=== PATIENT | male | born 1955 | race Caucasian/White ===

== ENCOUNTER 2021-02-27 13:39 | Observation (INO) ==
[2021-02-27] MEDS ORDERED: Clindamycin 900 MG/50 ML 900 MG/50 ML IV.SOLN IVPB ONE (13:54)
[2021-02-27] MEDS ORDERED: Ringers Solution, Lactated 1,000 ML IVC SCH ×2 (14:00→19:33)
[2021-02-27 15:03] LABS: Influenza A PCR Negative (Negative); Influenza B PCR Negative (Negative); Resp. Syncytial Virus PCR Negative (Negative)
[2021-02-27 15:04] LABS: SARS-CoV-2 by PCR (In House) Negative (Negative)
[2021-02-27] MEDS ORDERED: Bacitracin 50,000 UNIT, Polymyxin B Sulfate 500,000 UNIT, Sodium Chloride IRRigation 1,... IR ONE (15:25)
[2021-02-27] MEDS ORDERED: Lidocaine HCL 4 ML Topical Solution (Laryng-O-Jet Kit Sterile Pak) TP ONE (15:44)
[2021-02-27] MEDS ORDERED: *HR* Propofol 200 MG/20 ML VIAL IVP ONE (15:49)
[2021-02-27] MEDS ORDERED: *HR* Succinylcholine 200 MG/10 ML VIAL IVP ONE (15:50)
[2021-02-27] MEDS ORDERED: Lidocaine -MPF 2% 2 ML VIAL ONE (15:50)
[2021-02-27] MEDS ORDERED: *HR* Rocuronium Bromide 50 MG/5 ML VIAL ONE (15:50)
[2021-02-27] MEDS ORDERED: Ondansetron 4 MG/2 ML VIAL ONE (15:51)
[2021-02-27] MEDS ORDERED: Promethazine 6.25 MG in Water for inj. (sterile) 20 ML IVPB PRN (15:58)
[2021-02-27] MEDS ORDERED: *HR* HYDROcodone/Acet 10/325 mg TABLET PO PRN (15:58)
[2021-02-27] MEDS ORDERED: *HR* Labetalol 20 MG/4 ML SYRINGE IVP PRN (15:58)
[2021-02-27] MEDS ORDERED: *HR* HYDROmorphone (PF) 1 MG/ML SYRINGE IVP PRN (15:58)
[2021-02-27] MEDS ORDERED: Ondansetron 4 MG/2 ML VIAL IVP PRN ×2 (15:58→19:33)
[2021-02-27] MEDS ORDERED: *HR* Vasopressin 20 UNIT/ML VIAL ONE (16:03)
[2021-02-27] MEDS ORDERED: Acetaminophen IV 1,000 MG/100 ML BAG IVPB ONE ×2 (16:03→16:45)
[2021-02-27] MEDS ORDERED: *HR* Midazolam HCl 2 MG/2 ML VIAL ONE (16:04)
[2021-02-27] MEDS ORDERED: *HR* FentaNYL (PF) 100 MCG/2 ML VIAL ONE (16:04)
[2021-02-27] MEDS ORDERED: *HR* PHENYLEPHRINE 1,000 MCG/10 ML SYRINGE IVP ONE (16:32)
[2021-02-27] MEDS ORDERED: Sugammadex Sodium 200 MG/2 ML VIAL IV ONE (17:55)
[2021-02-27] MEDS ORDERED: Nitroglycerin 0.4 MG TAB.SUBL SL PRN (19:33)
[2021-02-27] MEDS ORDERED: Naloxone 0.4 MG/ML INJ IVP PRN (19:33)
[2021-02-27] MEDS ORDERED: *HR* HYDROcodone/Acet 5/325 mg TABLET PO PRN (19:33)
[2021-02-27] MEDS ORDERED: Acetaminophen 325 MG TABLET PO PRN (19:33)
[2021-02-27] MEDS ORDERED: Ibuprofen 400 MG TABLET PO PRN (19:40)
[2021-02-27] MEDS: Cholecalciferol (D-3) 1,000 UNIT (25MCG) TABLET PO SCH (20:44)
[2021-02-27] MEDS: Gabapentin 300 MG CAPSULE PO SCH (20:45)
[2021-02-27] MEDS: *HR* OxyCODONE Immed Rel 5 MG TABLET PO PRN (20:49)
[2021-02-28] MEDS: Clindamycin 900 MG/50 ML 900 MG/50 ML IV.SOLN IVPB SCH ×2 (00:04→08:56)
[2021-02-28] MEDS: Fenofibrate 54 MG TABLET PO SCH (08:50)
[2021-02-28] MEDS: Cholecalciferol (D-3) 1,000 UNIT (25MCG) TABLET PO SCH ×2 (08:51→20:14)
[2021-02-28] MEDS: Gabapentin 300 MG CAPSULE PO SCH ×3 (08:52→20:14)
[2021-02-28] MEDS: Aspirin 81 MG TAB.CHEW PO SCH (08:52)
[2021-02-28] MEDS: Cyanocobalamin (B-12) 1,000 MCG TABLET PO SCH (08:52)
[2021-02-28] MEDS: *HR* OxyCODONE Immed Rel 5 MG TABLET PO PRN (08:55)
[2021-02-28] MEDS ORDERED: Ondansetron 4 MG/2 ML VIAL IVP PRN (15:33)
[2021-02-28] MEDS: Pantoprazole 40 MG VIAL IVP SCH (17:51)
[2021-02-28] MEDS: 0.9 % Sodium Chloride 1,000 ML IVC SCH (17:52)
[2021-02-28] MEDS: Famotidine 20 MG TABLET PO SCH (21:46)
[2021-02-28] MEDS: Simethicone 80 MG TAB.CHEW PO SCH (21:46)
[2021-03-01] MEDS: *HR* OxyCODONE Immed Rel 5 MG TABLET PO PRN ×3 (04:19→15:52)
[2021-03-01] MEDS: 0.9 % Sodium Chloride 1,000 ML IVC SCH (04:20)
[2021-03-01] MEDS: Pantoprazole 40 MG VIAL IVP SCH (08:39)
[2021-03-01] MEDS: Cyanocobalamin (B-12) 1,000 MCG TABLET PO SCH (08:40)
[2021-03-01] MEDS: Gabapentin 300 MG CAPSULE PO SCH ×2 (08:40→15:52)
[2021-03-01] MEDS: Simethicone 80 MG TAB.CHEW PO SCH ×2 (08:40→15:52)
[2021-03-01] MEDS: Fenofibrate 54 MG TABLET PO SCH (08:41)
[2021-03-01] MEDS: Famotidine 20 MG TABLET PO SCH (08:41)
[2021-03-01] MEDS: Cholecalciferol (D-3) 1,000 UNIT (25MCG) TABLET PO SCH (08:41)
[2021-03-01] MEDS: Aspirin 81 MG TAB.CHEW PO SCH (08:42)
[2021-03-01 15:24] VITALS: BP 114/64
== END 2021-03-01 16:10 | disposition home or self-care (01) ==
LOC: SAMDAY 13:39 → 3NENU 13:39
PROVIDERS: ADMIT Orthopaedic Surgery Orthopaedic Surgery of the Spine; ATTEND Orthopaedic Surgery Orthopaedic Surgery of the Spine